=== PATIENT | female | born 1990 | race Caucasian/White ===

== ENCOUNTER 2019-10-25 12:39 | Emergency (ER) | payer BC ==
[~2019-10-25] VITALS: Ht 170.2 cm; Wt 64.0 kg
--- NOTE | 2019-10-25 13:00 | NUR ---
Patient came in to ther er c/o hyperventilating, anxious, teary eyed while driving. Body numb. On room air, breathing evenly and unlabored. connected to the monitor and pulse ox. kept comfortable, will continue to monitor accordingly.
[2019-10-25] MEDS ORDERED: LORAZEPAM 0.5 MG TABLET ONE (13:26)
[2019-10-25] MEDS ORDERED: LORAZEPAM 1 MG TABLET PO ONE (13:30)
[2019-10-25 14:16] VITALS: BP 125/66
--- NOTE | 2019-10-25 14:17 | NUR ---
Patient discharged to home in stable condition. Written and verbal after care instructions given. Patient verbalizes understanding of instruction.
== END 2019-10-25 14:17 | disposition home or self-care (01) ==
LOC: ER 12:41
DX: F41.1 Generalized anxiety disorder (principal); R06.4 Hyperventilation
CPT/HCPCS: 71045-TC; 84703-TC